=== PATIENT | female | born 1995 | race Two or more races ===

== ENCOUNTER 2018-11-08 21:51 | Emergency (ER) | payer BC, OTHER ==
[~2018-11-08] VITALS: Ht 160 cm; Wt 52.2 kg
[2018-11-08] MEDS ORDERED: IBUPROFEN 600 MG TABLET PO ONE ×2 (22:21→22:30)
[2018-11-08] MEDS ORDERED: ACETAMINOPHEN 325 MG TABLET ONE (22:22)
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
--- NOTE | 2018-11-08 22:28 | NUR ---
PT TAKEN TO RADIOLOGY.
[2018-11-08] MEDS ORDERED: ACETAMINOPHEN 325 MG TABLET PO ONE (22:30)
--- NOTE | 2018-11-08 22:45 | NUR ---
PT BACK FROM RADIOLOGY.
[2018-11-08 23:23] VITALS: BP 129/74
--- NOTE | 2018-11-08 23:23 | NUR ---
PT OK TO BE DISCHARGED PER DR NAPIER. Patient discharged to home in stable condition. Written and verbal after care instructions given. Patient verbalizes understanding of instruction.Patient is awake and alert to self, day, and place.
== END 2018-11-08 23:24 | disposition home or self-care (01) ==
LOC: ER 21:56
DX: M23.92 Unspecified internal derangement of left knee (principal); M54.5 Low back pain; V00.131A Fall from skateboard, initial encounter; Y93.51 Activity, roller skating (inline) and skateboarding; Y92.331 Roller skating rink as the place of occurrence of the external cause; Y99.8 Other external cause status
CPT/HCPCS: 72110; 73564 ×2; 99283; A4606